=== PATIENT | male | born 1950 | race Caucasian/White ===

== ENCOUNTER → 2022-02-05 13:06 | Outpatient (CLI) | payer OTHER, SELFPAY ==
--- NOTE | ~2022-02-05 | XR_ITS ---
XR lumbar spine 2-3V DATE: 02/05/2022 13:53 INDICATION: Low back pain TECHNIQUE: AP, lateral, coned lateral lumbosacral views COMPARISON: None FINDINGS: There is thoracolumbar levoscoliosis. There is diffuse osteopenia. There is degenerative change of the lower thoracic spine. Moderate degenerative disc disease at L2-3. Moderate to moderately severe degenerative disease at L3-4. Grade 1 anterolisthesis at L4-5 due to degenerative change at the apophyseal joints. The sacroiliac joints appear normal. IMPRESSION: Degenerative disc disease, moderate at L2-3, moderate to moderately severe to L3-4 Degenerative changes at apophyseal joints with associated grade 1 anterolisthesis at L4-5 Diffuse osteopenia Mild thoracolumbar levoscoliosis Reviewed, dictated and finalized at location A. IMPRESSION: Degenerative disc disease, moderate at L2-3, moderate to moderately severe to L3-4 Degenerative changes at apophyseal joints with associated grade 1 anterolisthes is at L4-5 Diffuse osteopenia Mild thoracolumbar levoscoliosis
== END ==
DX: M54.50 Low back pain, unspecified (principal); M51.36 Other intervertebral disc degeneration, lumbar region; M43.16 Spondylolisthesis, lumbar region; M85.88 Other specified disorders of bone density and structure, other site; M41.85 Other forms of scoliosis, thoracolumbar region
CPT/HCPCS: 72100